=== PATIENT | female | born 1975 | race Hispanic/Latino ===

== ENCOUNTER 2023-04-21 14:59 | Emergency (ER) | payer BC ==
[~2023-04-21] VITALS: Ht 157.5 cm; Wt 74.4 kg
[2023-04-21 15:36] VITALS: O2SAT 100
[2023-04-21] MEDS ORDERED: KETOROLAC TROMETHAMINE 60 MG/2 ML VIAL IM ONE (16:15)
== END 2023-04-21 17:20 | disposition home or self-care (01) ==
LOC: ER 16:00
DX: M54.6 Pain in thoracic spine (principal); K21.9 Gastro-esophageal reflux disease without esophagitis; M19.09 Primary osteoarthritis, other specified site
CPT/HCPCS: 99283; J1885